=== PATIENT | female | born 1945 | race Caucasian/White ===

== ENCOUNTER 2016-09-06 17:52 | Outpatient (CLI) | payer MEDICARE, MEDICAID ==
--- NOTE | 2016-09-06 21:32 | RAD ---
LUMBAR SPINE THREE VIEWS Date: 09-06-16 FINDINGS: No fracture, dislocation, or significant disc space narrowing was seen. Degenerative changes are muc h fewer than are usually seen in this age group. All vertebrae appear intact. There is a very minor curve of the spine towards the left. The SI joints are symmetrical and appear normal. IMPRESSION: No significant findings. POS: HOME
== END 2016-09-06 17:53 | disposition home or self-care (01) ==
LOC: BURRAD 17:52
PROVIDERS: ATTEND Family Medicine
DX: M54.16 Radiculopathy, lumbar region (principal)
CPT/HCPCS: 72100

== ENCOUNTER 2016-09-09 13:46 | Outpatient (CLI) | payer MEDICARE, MEDICAID ==
--- NOTE | 2016-09-10 07:47 | MRI ---
LUMBAR SPINE MRI NONCONTRAST: Date: 09/09/16 Reference made to 09/06/16 lumbar spine radiographs. CLINICAL HISTORY: Lumbar radiculopathy, recent onset. FINDINGS: There is a generalized marrow heterogeneity without evidence of acute edema. No compression deformit y, acute disc space narrowing, or subluxation. Conus medullaris demonstrates normal morphology and t erminates at the L1 level. 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 There is no evidence of acute abnormality within the imaged retroperitoneum. L5-S1: No significant central canal or foraminal stenosis. L4-5: There is a mild disc bulge without high grade central canal stenosis. Minimal narrowing of the left neural foramen. L3-4: No high grade central canal stenosis. Minimal left foraminal narrowing. L2-3: There is no high grade central canal or foraminal stenosis. L1-2: No high grade central canal or foraminal stenosis. IMPRESSION: No significant abnormality of the lumbar spine. POS: [facility]
== END 2016-09-09 13:47 | disposition home or self-care (01) ==
LOC: BURMRI 13:46
PROVIDERS: ATTEND Family Medicine
DX: M54.16 Radiculopathy, lumbar region (principal)
CPT/HCPCS: 72148

== ENCOUNTER 2017-05-20 01:25 | Emergency (ER) | payer MEDICARE, MEDICAID ==
[2017-05-20] MEDS ORDERED: Nitroglycerin 0.4 MG TAB (25 Tab Bottle) ONE ×2 (01:40→03:09)
[2017-05-20] MEDS ORDERED: Fentanyl 100 MCG/2 ML VIAL ONE ×2 (01:52→02:47)
[2017-05-20] MEDS ORDERED: Nitroglycerin 2% Ointment 1 INCH/1 GM Packet ONE (01:52)
[2017-05-20 01:59] LABS: #Basophils 0.1 thou/uL (0.0-0.2); #Eosinphils 0.2 thou/uL (0.0-0.7); #Lymphocytes 2.6 thou/uL (1.20-3.40); #Monocytes 0.4 thou/uL (0.11-0.59); #Neutrophils 5.5 thou/uL (1.40-6.50); %Basophils 0.9 % (0.0-1.0); %Eosinophils 1.8 % (0.0-10.0); %Lymphocytes 30.3 % (21.0-51.0); %Monocytes 4.4 % (0.0-10.0); %Neutrophils 62.6 % (42.0-75.0); Mean Corpuscular HGB CONC 34.9 g/dL (32.0-36.0); Mean Corpuscular Hemoglobin 30.1 pg (27.0-31.0); Mean Corpuscular Volume 86.1 fl (81.0-99.0); Platelet Count 233 thou/uL (130-400); RBC Distribution Width 12.1 % (11.5-14.5); Red Blood Cell (RBC) Count 5.33 mill/uL (4.20-5.40); White Blood Cell (WBC) Count 8.7 thou/uL (4.8-10.8)
[2017-05-20 02:10] LABS: CKMB 0.7 ng/mL (0-6.6); Troponin I Less than 0.010 ng/mL (< 0.028)
[2017-05-20 02:15] LABS: ALT (SGPT) 15 U/L (8-55); AST (SGOT) 11 U/L (5-34); Albumin 4.1 g/dL (3.4-4.8); Alkaline Phosphatase 107 U/L (40-150); Anion Gap 14 mmol/L (10-20); BUN (Urea Nitrogen) 14 mg/dL (9.8-20.1); Bilirubin, Total 0.3 mg/dL (0.2-1.2); Calc. Creatinine Clearance 0 mL/min (70-130); Calcium 9.6 mg/dL (7.8-10.44); Carbon Dioxide 23 mmol/L (23-31); Chloride 107 mmol/L (98-107); Estimated GFR-MDRD 70; Globulin 2.7 g/dL (2.4-3.5); Glucose 105 mg/dL (83-110); Lipase 30 U/L (8-78); Potassium 3.3 mmol/L (3.5-5.1); Protein, Total 6.8 g/dL (6.0-8.3); Sodium 141 mmol/L (136-145)
[2017-05-20] MEDS ORDERED: Potassium Chloride 20 MEQ/100 ML PREMIX BAG ONE (02:27)
--- NOTE | 2017-05-20 08:17 | CT ---
PRELIMINARY REPORT/[facility]/EMERGENCY AFTER HOURS PROCEDURE: EXAM: CT Angiography Chest With Intravenous Contrast CLINICAL HISTORY: 71 years old, female; Pain; Abdominal pain; Acute; Chest pain; Radiating; Patient HX: Chest pain radi ating to back, R/O aortic dissection TECHNIQUE: Axial computed tomographic angiography images of the chest with intravenous contrast using pulmonary embolism protocol. MIP reconstructed images were created and reviewed. CONTRAST: 92 mL of ISO 370 administered intravenously. COMPARISON: No relevant prior studies available. FINDINGS: Pulmonary arteries: No pulmonary embolism. Aorta: Mild atherosclerotic disease of the thoracic aorta, without aneurysm or dissection. Lungs: Mild upper lobe predominant centrilobular emphysema, with chronic obstructive pulmonary physio logic changes. Minimal posterior dependent atelectasis. Pleural space: Normal. No significant effusion. No pneumothorax. Heart: Mild atherosclerotic disease of the coronary arteries. Bones/joints: No acute fracture. No dislocation. Soft tissues: Normal. Lymph nodes: Normal. IMPRESSION: 1. No acute thoracic abnormality. 2. Mild atherosclerotic disease of the thoracic aorta, without aneurysm or dissection. 3. Incidental/non-acute findings are described above. EXAM: CT Angiography Abdomen With Intravenous Contrast CLINICAL HISTORY: 71 years old, female; Pain; Abdominal pain; Acute; Chest pain; Radiating; Patient HX: Chest pain radi ating to back, R/O aortic dissection TECHNIQUE: Axial computed tomographic angiography images of the abdomen with intravenous contrast. All CT scans at this facility use one or more dose reduction techniques, viz.: automated exposure control; ma/kV a djustment per patient size (including targeted exams where dose is matched to indication; i.e. head); or iterative reconstruction technique. MIP reconstructed images were created and reviewed. CONTRAST: 92 mL of ISO 370 administered intravenously. COMPARISON: No relevant prior studies available. FINDINGS: Lower thorax: No acute findings. Aorta: Atherosclerotic disease of the abdominal aorta, without aneurysm or dissection. Celiac trunk and mesenteric arteries: No acute findings. No occlusion or significant stenosis. Renal arteries: No acute findings. No occlusion or significant stenosis. Iliac arteries: Moderate atherosclerotic disease of the right common iliac artery, with approximately 30% luminal narrowing. Mild atherosclerotic disease of the left common iliac artery, without signifi cant luminal narrowing. Atherosclerotic disease of the internal and external iliac arteries, which ar e patent. Liver: Simple cyst within the left hepatic lobe. Gallbladder and bile ducts: Gallbladder is surgically absent. No ductal dilation. Pancreas: Normal. No ductal dilation. No mass. Spleen: Normal. No splenomegaly. Adrenals: Normal. No mass. Kidneys and ureters: Irregularity of the left renal parenchyma, possibly developmental versus scarring. Nonobstructive right nephrolithiasis. Stomach and bowel: Normal. No obstruction. No mucosal thickening. Intraperitoneal space: Normal. No significant fluid collection. No free air. Bones/joints: No acute fracture. No dislocation. Soft tissues: Normal. No mass. Lymph nodes: Normal. IMPRESSION: 1. No acute abdominal abnormality. 2. Atherosclerotic disease of the abdominal aorta, without aneurysm or dissection. 3. Incidental/non-acute findings are described above. Thank you for allowing us to participate in the care of your patient. Dictated and Authenticated by: Toi Greenfield MD 05/20/2017 3:15 AM Central Time ([place] & [place]) FINAL REPORT CT ANGIOGRAM OF THE CHEST WITH IV CONTRAST AND 3D POST PROCESSING CT ANGIOGRAM OF THE ABDOMEN WITH IV CONTRAST AND 3D POST PROCESSING: I agree with the preliminary report given by Dr. Toi Greenfield of [facility]. POS: [facility]
== END 2017-05-20 02:50 | disposition short-term general hospital (02) ==
LOC: BURERS 01:25
DX: R07.2 Precordial pain (principal); K21.9 Gastro-esophageal reflux disease without esophagitis; E78.5 Hyperlipidemia, unspecified; I10 Essential (primary) hypertension; F17.210 Nicotine dependence, cigarettes, uncomplicated; Z79.891 Long term (current) use of opiate analgesic; Z79.899 Other long term (current) drug therapy
CPT/HCPCS: 71275; 80053; 82553; 83690; 84484; 85025; 85379; 93005; 96361; 96365; 96375; 96376; J3010; J3480

== ENCOUNTER 2017-09-26 14:45 | Outpatient (CLI) | payer MEDICARE, MEDICAID ==
--- NOTE | 2017-09-26 21:26 | RAD ---
CHEST TWO VIEWS: 09/26/2017 COMPARISON: Study from [facility] done on 12/29/2015. FINDINGS: The heart is normal in size. No lobar infiltrates or effusions are seen. There is calcification in the aortic arch. A fat pad is noted at the cardiac apex. IMPRESSION: No acute thoracic findings. POS: HOME
== END 2017-09-26 14:46 | disposition home or self-care (01) ==
LOC: BURRAD 14:45
PROVIDERS: ATTEND Family Medicine
DX: J40 Bronchitis, not specified as acute or chronic (principal)
CPT/HCPCS: 71046

== ENCOUNTER 2017-11-29 11:18 | Outpatient (CLI) | payer MEDICARE, MEDICAID ==
--- NOTE | 2017-11-29 14:43 | RAD ---
LEFT HIP TWO VIEWS: Date: 11-29-17 FINDINGS: No fracture, joint space narrowing, or other acute bony change was seen. The articular surfaces are s mooth. IMPRESSION: No acute finding. POS: HOME
== END 2017-11-29 11:19 | disposition home or self-care (01) ==
LOC: BURRAD 11:18
PROVIDERS: ATTEND Family Medicine
DX: M70.62 Trochanteric bursitis, left hip (principal)

== ENCOUNTER 2018-04-17 15:19 | Outpatient (CLI) | payer MEDICARE, MEDICAID ==
--- NOTE | 2018-04-17 16:31 | RAD ---
CHEST TWO VIEWS: Date: 04-17-18 Comparison: 09-26-17 FINDINGS: The lungs are hyperexpanded with flattening of the diaphragm. No pulmonary infiltrates are seen. No f ocal pulmonary lesion was noted. There are no effusions. The heart is normal in size. The mediastinum is unremarkable. Faint calcification is seen in the aortic arch. The trachea is midline. IMPRESSION: Mildly hyperexpanded lungs but no adverse change since September 2017. POS: HOME
== END 2018-04-17 15:20 | disposition home or self-care (01) ==
LOC: BURRAD 15:19
PROVIDERS: ATTEND Family Medicine
DX: Z00.00 Encounter for general adult medical examination without abnormal findings (principal); R91.8 Other nonspecific abnormal finding of lung field
CPT/HCPCS: 71046

== ENCOUNTER 2019-08-17 11:27 | Outpatient (CLI) | payer MEDICARE, MEDICAID ==
--- NOTE | 2019-08-17 16:31 | RAD ---
CHEST TWO VIEWS: 08/17/19 Comparison is made with an 04/17/18 study. There is increased haziness in the right base medially suggestive of a developing infiltrate here. Th is was not present on the 2018 chest film. The left lung is clear. There are no effusions. The heart size is normal. Calcific changes are seen in the aortic arch. IMPRESSION: Right basilar haziness medially that is likely an early pneumonia given the symptoms. It is most like ly in the right middle lobe. Follow-up films advised if the patient progresses in symptoms. POS: HOME
== END 2019-08-17 11:28 | disposition home or self-care (01) ==
LOC: BURRAD 11:27
PROVIDERS: ATTEND Family Medicine
DX: R05 Cough (principal); R09.89 Other specified symptoms and signs involving the circulatory and respiratory systems
CPT/HCPCS: 71046